=== PATIENT | female | born 1950 | race American Indian/Alaskan Native ===

== ENCOUNTER 2017-03-15 08:02 | Day surgery (SDC) | payer MEDICARE ==
[~2017-03-15 08:02] MED LIST: DEPO-MEDROL ONE; GARAMYCIN ONE; XYLOCAINE 2%/ EPI 1:200,000 INFILTRATI ONE
[2017-03-15] MEDS ORDERED: TETRACAINE 0.5% OD SCH (09:00)
[2017-03-15] MEDS ORDERED: NACL BACTERIOSTATIC INFILTRATI ONE (09:08)
--- NOTE | 2017-03-15 09:39 | Anesthesia Consultation ---
Anesthesia Consult and Med Hx Date of service: 03/15/17 - Airway Anesthetic Teeth Evaluation: Edentulous ROM Head & Neck: Inadequate Mental/Hyoid Distance: Inadequate Mallampati Class: Class III Intubation Access Assessment: Possibly Difficult - Pulmonary Exam CTA: Yes - Cardiac Exam Cardiac Exam: RRR - Pre-Operative Health Status ASA Pre-Surgery Classification: ASA3 Proposed Anesthetic Plan: MAC - Pulmonary Hx Sleep Apnea: No (high risk) - Cardiovascular System Hx Hypertension: Yes (OVER 10 YEARS) - Central Nervous System CVA: Yes (stroke in 2017. no deficits) Hx Back Pain: Yes Hx Psychiatric Problems: No - Other Systems Hx Alcohol Use: No Hx Substance Use: No Hx Cancer: No Hx Obesity: Yes - Additional Comments Anesthesia Medical History Comments: saw her PCP earlier this month. face appears swollen. family said that is not new. Plan is to provide sedation. Informed consent obtained
--- NOTE | 2017-03-15 09:39 | Anesthesia Day of Surgery ---
Anesthesia Day of Surgery - Day of Surgery Patient Examined: Yes Patient H&P Reviewed: Yes Patient is NPO: Yes
[2017-03-15] MEDS: ISOPTO CARPINE OD SCH ×3 (09:45→09:55)
[2017-03-15] MEDS: VIGAMOX OD PRN ×3 (09:45→09:55)
[2017-03-15 09:59] LABS: Calcium 9.5 mg/dL (8.4-10.2)
[2017-03-15] MEDS ORDERED: VERSED ONE ×2 (10:18→11:12)
[2017-03-15] MEDS ORDERED: SUBLIMAZE ONE (10:18)
[2017-03-15] MEDS ORDERED: APRESOLINE ONE (10:25)
[2017-03-15] MEDS ORDERED: XYLOCAINE MPF 1% INFILTRATI ONE ×2 (10:29→14:10)
[2017-03-15] MEDS ORDERED: DILAUDID ONE (11:22)
[2017-03-15] MEDS ORDERED: NACL P/F VIAL (10 ML) 10 ML ONE (11:42)
--- NOTE | 2017-03-15 12:16 | Operative Report ---
Operative Report Operative Report: PATIENT NAME: DATE OF : DATE OF SURGERY: 03/15/2017 PREOPERATIVE DIAGNOSIS: Failed DSEAK Right Eye POSTOPERATIVE DIAGNOSIS: Same PROPOSED PROCEDURE: Repeat Endothelial keratoplasty right eye ADDITIONAL PROCEDURE: NONE SURGEON: Raeann Patrick MD CREDIT CONTROL OFFICER SURGEON: [] ANESTHESIA: Monitored anesthesia care in combination with topical and intracameral anesthesia because of the established specific risk of reflux, arrhythmias, or anxiety attacks associated with ocular manipulation, as well as the difficulty of the senior web developer to manage such potentially catastrophic events while simultaneously attempting to complete the surgical procedure and was deemed necessary for the patient's safety to have an anesthesiologist was present during the procedure whenever possible. The anesthesiologist was utilized to regulate the intravenous sedation of the patient so the patient was cooperative yet not asleep in order for the patient to successfully maintain fixation of the eye on the operating light of the microscope. COMPLICATIONS: None ALLERGIES: [No known drug allergies] PREOPERATIVE NOTE: The patient is a lady who has the diagnosis of failed DSEAK graft right eye. She had had previous surgery at [facility]. 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 Donor tissue will be used to replace the dysfunctional endothelium utilizing a penetrating technique into the anterior chamber. This complicated technique allows the patient to maintain structural integrity of the eye making it much more resistant to traumatic rupture than a standard keratoplasty. It also allows a larger than average surface area of transplanted endothelium which hopefully in the long run will allow for longer endothelial viability and success for the surgery. It also provides for faster visual recovery and less anisometropia than previous keratoplasty techniques. It is technically more difficult because of the complicated preparation of the donor tissue and insertion of the donor tissue into the anterior chamber with fixation of the tissue without direct suturing of the donor. This also provides an increased chance of dislocation of the donor tissue in the immediate postoperative period compared to standard keratoplasty techniques. This type of corneal transplant takes over twice as long as a standard corneal transplant. Moreover, the preparation and end of surgery are more time consuming for both the surgeon and staff: the blocking of the eye requires a longer setup time as noted, the procedure itself is more complex, and the patient needs to lay face up and flat in the recovery area for a specified period of time prior to discharge. Preoperatively, it was discussed with the patient that they could have either a standard corneal transplant or a variation of a penetrating keratoplasty where only the posterior layers of the cornea are transplanted. With this new technique, as with any corneal transplant, there is always the possibility that the surgery may need to be repeated; or, in this case, also repeated with a standard corneal transplant if the visual result is not satisfactory. However, some of the advantages of this current technique are much more rapid visual recovery and a tectonically stronger eye after surgery. PROGNOSIS: Excellent INDICATIONS FOR SURGERY: The patient is undergoing surgery with the hope of eliminating or improving these visual difficulties. OPERATIVE REPORT: The patient was taken into the preoperative area and evaluated medically and found from a systemic standpoint to be suitable for the planned surgery and anesthesia. The patient was then sedated and monitored by anesthesia. The patient was next taken into the operating room where they were positioned on the operating bed. They were given drops of topical anesthetic in the operative eye. Betadine was used to scrub the periorbital area, eyelids, adjacent cheek and forehead. The prepped area was dried with sterile gauze. The patient was draped, and a wire speculum was placed between the eyelids. The horizontal diameter of the cornea was measured with calipers to assist in determining the proper sizing of the trephination blade to be used for donor incision and for removal of the patients central Descemets membrane. PREPARATION OF DONOR TISSUE: Prior to surgery, the donor tissue was inspected and found to be adequate for the planned procedure. The involved eye bank provided the usual demographic information on the donor including age, cause of , necessary screening and blood work. The results were negative regarding possible transmission of diseases from the donor. Our inspection of the donor tissue showed no gross abnormalities. The patients donor cornea was prepared by the eye bank to separate the anterior and posterior portions of the cornea for the planned surgery. This was done with a microkeratome and the anterior cap of tissue was placed back on the cornea and it was removed from the artificial anterior chamber and placed in the Optisol storage solution and sent to us for transplantation. Gentian quita ramirez were placed on the epithelial, or anterior surface of the corneal cap side of the tissue for identification. The cornea was inspected prior to surgery and found to be suitable and at the time of surgery was taken out of the storage solution and carefully centered on the cutting block with the centration based on the centration cade that was made the eye bank on the external surface of the cornea-the stromal side. The donor tissue was removed from the tissue storage container by carefully removing it with forceps taking care not to touch the endothelial surface but only the scleral rim Suction was applied, the centration was rechecked to make sure it was perfectly centered. Once the size of the appropriate trephine was determined, the donor was punched with the trephine. The donor cornea was then covered with tissue storage solution and put aside for use later in the surgical procedure. PREPARATION OF THE RECIPIENT CORNEA: Attention was now directed to the patients eye. My faculty research assistant had been applying topical anesthetic consisting of both drops and cellulose sponges soaked in 2% Xylocaine with epinephrine. The speculum had already been placed between the eyelids and the eye prepped and draped in my usual manner with Betadine solution prior to the starting the surgery. The horizontal corneal diameter was measured and the overall condition of the eye was evaluated to determine which size of trephine would best provide for as large donor button as possible without compromising the angle structures or iris. White to white was 10.25 so chose and 8.25mm punch. The patient had previously had a clear corneal incision of 5.0 mm for corneal surgery. This incision was able to be opened by using a Sinskey hook to separate the superficial area of the wound. Next, a cyclodialysis spatula was used to separate the deeper anterior vertical portion and the incision and then the lamellar portion. After the side port incision was made as noted below, a specially modified Mckenzie-Lashoney hook was introduced through the reopened incision into the anterior chamber and advanced to the nasal side of the chamber. The hook was used to grab the nasal side of the graft and dislodge it. Pulling with the hook, the graft was disinserted from the back surface of the patient, or recipient, cornea and removed from the eye. In this case, the Descemets, which was stripped and removed, consisted of the previous graft with the portion of stroma from the previous donor. A sharp blade was next used to make a stab incision in mid peripheral cornea into the anterior chamber. This was done so that the inner portion would be covered by the donor tissue later in the case. Gentian quita marked the incision as well. This incision was positioned to be used by my right hand. The donor tissue was removed from the cutting block and transferred to the operative field. It was placed on the patients cornea so that the endothelium of the donor was facing up. The tissue storage solution and any blood or other material was allowed to flow off the donor tissue. A small amount of viscoelastic was then placed on the endothelial surface of the donor. Two forceps were then used to grasp an edge of the donor taking care not to actually touch the endothelium and the posterior portion of the donor, which had been previously dissected on the artificial anterior chamber, and the donor gently partially pulled apart about half of the posterior portion from the anterior portion. A Busin Funnel was brought into the operative field and the posterior portion of the donor was pulled onto it. Intraocular forceps were used to pull the tissue into the funnel, essentially making it fold over on itself endothelial side inward. The intraocular forceps were then introduced through a previously made peripheral corneal stab incision in the nasal cornea. The forceps were moved across the anterior chamber to the area of the 5.0 mm incision. The Busin funnel was inserted into the 5.0 mm wound. The forceps grasped the edge of the donor tissue and the tissue was pulled into the eye. Once inside the eye, the forceps released their hold and the funnel was removed. Using a 30-gauge needle, a small stab incision was made in the peripheral cornea and a small amount of air was injected within the folded-over piece of donor tissue in the eye. The air was slowly injected to unfold the donor endothelial side down. Once the donor had unfolded, the anterior chamber was completely filled with air. A Bartlett roller was used to massage the anterior surface of the cornea and to massage the donor tissue into the correct position. The massaging also helped to remove retained air or fluid caught between the donor and recipient tissue. Once the donor was in the correct position and no retained fluid or air was present between the donor and recipient, the timer was started and the anterior chamber was left completely filled with air for the designated time. OTHER SPECIFICS OF THE SURGICAL PROCEDURE: Trephine size: [8.25] mm Horizontal corneal diameter: [10.25] mm Time anterior chamber was completely filled with air in the operating room while the donor cornea was allowed to hold in position without any manipulation or massaginmin The patient laid face up and flat in the recovery room with a partial air bubble to help with further adherence of the donor cornea to the recipient cornea for the following length of time: 60min Needle reposition of the donor: The donor button of tissue could not be massaged into the correct position on the recipient cornea. Therefore, a 30- gauge needle was bent at its tip to form a right angle of the peripheral one- third to one-half of the beveled area. This needle was introduced into the anterior chamber and used to grasp the peripheral edge of the donor tissue and pull it into the correct position. Massage was then used to provide good apposition and centration of the tissue. DISCHARGE SUMMARY: The patient was released in stable condition. The patient and those with the patient were given a written sheet of postoperative instructions and counseling on any abnormal laboratory studies. The patient is to call immediately for difficulties and will otherwise see us in the morning at the office. Raeann Patrick M.D. Date cc: Dictated: Worksheets: Transcribed:
--- NOTE | 2017-03-15 12:18 | Short Stay Summary ---
Short Stay Documentation Date of service: 03/15/17 - History H&P: obtained from office - Allergies and Medications Current Medications: Allergies No Known Allergies Allergy (Verified 03/14/17 11:36) Home Medications Medication Instructions Recorded Confirmed Last Taken Type Aspirin EC [Aspirin Enteric Coated 81 mg PO QDAY 03/15/17 03/15/17 03/14/17 History TAB] AtorvaSTATin [Lipitor] 40 mg PO QHS 03/15/17 03/15/17 03/14/17 History Dorzolamide HCl/Timolol Maleat 1 drop OD QID 03/15/17 03/15/17 03/14/17 History [Cosopt Eye Drops] Dorzolamide HCl/Timolol Maleat 1 drop OS TID 03/15/17 03/15/17 03/14/17 History [Dorzolamide-Timolol Eye Drops] Lisinopril/Hydrochlorothiazide 1 tab PO QDAY 03/15/17 03/15/17 03/14/17 History [Zestoretic 10-12.5 mg] amLODIPine [Norvasc] 5 mg PO QDAY 03/15/17 03/15/17 03/15/17 06:30 History Active Medications Moxifloxacin HCl (Vigamox) 1 drops OD Q5MIN PRN PRN Reason: Analgesia Stop: 03/15/17 15:00 Last Admin: 03/15/17 09:55 Dose: 1 drops Pilocarpine HCl (Isopto Carpine) 1 drops OD Q5MIN [facility] Stop: 03/17/17 09:35 Last Admin: 03/15/17 09:55 Dose: 1 drops Tetracaine HCl (Tetracaine 0.5%) 1 drops OD Q5M [facility] Stop: 03/15/17 15:00 Last Admin: 03/15/17 09:45 Dose: 1 drops - Brief post op/procedure progress note Date of procedure: 03/15/17 Pre-op diagnosis: failed corneal graft right eye Post-op diagnosis: same Procedure: Repeat endothelial keratoplasty right eye Anesthesia: MAC, local Surgeon: MARIE RAMÍREZ Estimated blood loss: none Pathology: list (failed graft and cornea rim tissue) Condition: stable - Disposition Condition at discharge: Good Disposition: DC-01 TO HOME OR SELFCARE - Discharge Diagnoses (1) Failed corneal transplant Status: Resolved Short Stay Discharge Plan Additional Instructions: FOLLOW SURGEON INSTRUCTION SHEETS. Follow up with: KIM GRIFFIN MD [Primary Care Provider] - 7 Days Forms: Outpatient Surgery DC Inst.
[2017-03-15 13:14] VITALS: BP 147/75
--- NOTE | 2017-03-15 13:59 | Post Anesthesia Evaluation ---
- Post Anesthesia Evaluation Patient Participated: Yes Airway Patent: Yes Stable Respiratory Function: Yes Nausea/Vomiting: No Temp > 96.8F: Yes Pain Manageable: Yes Adequeate Hydration: Yes Anesthesia Complications: No
[2017-03-15] MEDS ORDERED: PRED FORTE 1% OD SCH (14:00)
== END 2017-03-15 13:05 | disposition home or self-care (01) ==
LOC: OR 08:02
DX: T86.841 Corneal transplant failure (principal); I10 Essential (primary) hypertension; E66.9 Obesity, unspecified; Z86.73 Personal history of transient ischemic attack (TIA), and cerebral infarction without residual deficits; Z91.040 Latex allergy status; Z79.82 Long term (current) use of aspirin; Z79.899 Other long term (current) drug therapy; Y83.1 Surgical operation with implant of artificial internal device as the cause of abnormal reaction of the patient, or of later complication, without mention of misadventure at the time of the procedure
CPT/HCPCS: 36415; 65756; 80048; 82962; 87075; 87116; 88304; J0360; J2250; J3010; J1030; J1170; J1580; V2785

== ENCOUNTER 2017-11-01 06:27 | Day surgery (SDC) | payer MEDICARE ==
[2017-11-01] MEDS ORDERED: TETRACAINE 0.5% OS SCH (06:30)
[2017-11-01] MEDS: VIGAMOX OS SCH ×3 (08:46→09:09)
[2017-11-01] MEDS: AK-Dilate OS SCH ×3 (08:46→09:09)
[2017-11-01] MEDS: MYDRIACYL OS SCH ×3 (08:46→09:09)
--- NOTE | 2017-11-01 09:07 | Anesthesia Day of Surgery ---
Anesthesia Day of Surgery - Day of Surgery Patient Examined: Yes Patient H&P Reviewed: Yes Patient is NPO: Yes
--- NOTE | 2017-11-01 09:07 | Anesthesia Consultation ---
Anesthesia Consult and Med Hx Date of service: 11/01/17 - Airway Anesthetic Teeth Evaluation: Good ROM Head & Neck: Adequate Mental/Hyoid Distance: Adequate Mallampati Class: Class II Intubation Access Assessment: Good - Pulmonary Exam CTA: Yes - Cardiac Exam Cardiac Exam: RRR - Pre-Operative Health Status ASA Pre-Surgery Classification: ASA3 Proposed Anesthetic Plan: MAC - Pulmonary Hx Sleep Apnea: No (high risk) - Cardiovascular System Hx Hypertension: Yes (20 YEARS) - Central Nervous System CVA: Yes (2016) Hx Back Pain: Yes Hx Psychiatric Problems: No - Other Systems Hx Alcohol Use: No Hx Substance Use: No Hx Cancer: No Hx Obesity: Yes
[2017-11-01] MEDS ORDERED: VERSED ONE (09:28)
[2017-11-01] MEDS ORDERED: DIAMOX PO NR (09:57)
--- NOTE | 2017-11-01 09:57 | Operative Report ---
Operative Report Operative Report: PATIENT'S NAME: DATE OF : DATE OF SURGERY: 11/01/2017 PREOPERATIVE DIAGNOSIS: Cataract left eye POSTOPERATIVE DIAGNOSIS: Same OPERATIVE PROCEDURE: Phacoemulsification with intraocular lens implantation, left eye SURGEON: Raeann Patrick M.D. EXPERIMENTAL BOX TESTER SURGEON: Blake Lens: [id number] 21.0 D ANESTHESIA: Monitored anesthesia care in combination with topical and intracameral anesthesia because of the established specific risk of reflux, arrhythmias, or anxiety attacks associated with ocular manipulation, as well as the difficulty of the booth cashier to manage such potentially catastrophic events while simultaneously attempting to complete the surgical procedure and was deemed necessary for the patient's safety to have an Quality Systems Technician present during the procedure whenever possible. An Quality Systems Technician was utilized to regulate the intravenous sedation of the patient so the patient was cooperative yet not asleep in order for the patient to successfully maintain fixation of the eye on the operating light of the microscope. COMPLICATIONS: No surgical complications No blood loss. ALLERGIES: No known drug allergies PROGNOSIS: Excellent INDICATIONS FOR SURGERY: The patient is undergoing surgery in the hopes of eliminating or improving these visual difficulties. PROCEDURE: After arriving at the surgery center, the patient was given topical anesthetic and dilating drops, as noted in the record. The patient was then taken into the operating room and given more anesthetic drops. The eyelids , lashes, and lid margins were scrubbed with Betadine solution, and the patient was draped. The Nurse Quality Systems Technician administered IV sedation and monitored the patient during the procedure. The eye was then fixated with a 0.12, and a stab incision was made in the peripheral clear cornea into the anterior chamber. This was made on my left side. Viscoelastic was next used to fill the anterior chamber. The eye was once again fixated with the 0.12 forceps and a keratome was used make an incision in clear cornea peripherally on my right hand side temporally. The capsule forceps were used to open the central anterior capsule and then make a continuous round capsulotomy. Hydrodissection was carried out utilizing a cannula and balanced salt solution to delineate the cortical material from the capsule and the nucleus from the cortical material. The phaco tip was introduced into the eye and used to remove the anterior cortical material in the area of the capsulotomy. Then the phaco tip was buried into the nucleus, and a chopping instrument was introduced into the eye and used to provide countertraction in the nucleus between this instrument and the phaco tip fracturing the nucleus. This procedure was repeated multiple times, providing multiple small segments of the lens, and then the phaco tip was used to remove each of these segments. An I/A tip was then used to remove the remaining cortex. The anterior chamber was refilled with viscoelastic. An one-piece, acrylic intraocular lens was then placed into an inserting cartridge. The tip of the inserting cartridge was introduced into the keratome incision and into the anterior chamber. The implant was gently advanced through the cartridge and into the eye, where it unfolded, and both haptics were placed in the capsular bag, where it centered nicely and appeared to be well fixated. After placement of the intraocular lens, the I~and~A handpiece was placed back into the eye and used to remove the viscoelastic, including viscoelastic that was behind the optic of the intraocular lens. The anterior chamber was then filled with balanced salt solution, and hydration of the wound was used to cause swelling of the wound and more appropriate watertight closure. When the wound was found to be firm, the patient was asked to comment on how bright the light was. If there was no light perception at all or if the light was substantially dimmer than during the rest of the surgery, the amount of fluid in the eye was decompressed to lower the intraocular pressure until the patient could see the bright light again. This was done to avoid any damage or decreased blood flow to the optic nerve. MEDICATIONS APPLIED AT END OF SURGERY: One drop of Pred Forte and Vigamox The patient was given a shield to wear at night and was instructed not to rub or push on the eye. DISCHARGE SUMMARY: The patient was released in stable condition. The patient and those with the patient were given a written sheet of postoperative instructions and counseling on any abnormal laboratory studies. The patient is to see us tomorrow for follow-up in the office and is to call immediately for any difficulties. Raeann Patrick M.D. Date
--- NOTE | 2017-11-01 09:59 | Short Stay Summary ---
Short Stay Documentation Date of service: 11/01/17 - History H&P: obtained from office - Allergies and Medications Current Medications: Allergies No Known Allergies Allergy (Verified 10/30/17 11:28) Home Medications Medication Instructions Recorded Confirmed Last Taken Type Aspirin EC [Aspirin Enteric Coated 81 mg PO QDAY 03/15/17 10/30/17 10/31/17 History TAB] AtorvaSTATin [Lipitor] 40 mg PO QHS 03/15/17 10/30/17 10/31/17 History Dorzolamide HCl/Timolol Maleat 1 drop OS TID 03/15/17 10/30/17 10/31/17 History [Dorzolamide-Timolol Eye Drops] Lisinopril/Hydrochlorothiazide 1 tab PO QDAY 03/15/17 10/30/17 11/01/17 05:00 History [Zestoretic 10-12.5 mg] Ferrous Sulfate 325 mg PO DAILY 10/30/17 10/30/17 10/31/17 History amLODIPine [Norvasc] 10 mg PO DAILY 10/30/17 10/30/17 11/01/17 05:00 History cloNIDine [Catapres] 0.1 mg PO DAILY 10/30/17 10/30/17 10/31/17 History Active Medications Acetazolamide (Diamox) 500 mg PO ONCE ONE Stop: 11/01/17 09:58 Moxifloxacin HCl (Vigamox) 1 drops OS Q5MIN [facility] Stop: 11/01/17 23:59 Last Admin: 11/01/17 09:09 Dose: 1 drops Phenylephrine HCl (Ak-Dilate) 1 drops OS Q5MIN [facility] Stop: 11/01/17 23:59 Last Admin: 11/01/17 09:09 Dose: 1 drops Prednisolone Acetate (Pred Forte 1%) 1 drops OS QID [facility] Tetracaine HCl (Tetracaine 0.5%) 1 drops OS Q5M [facility] Stop: 11/01/17 23:59 Last Admin: 11/01/17 08:45 Dose: 1 drops Tropicamide (Mydriacyl) 1 drops OS Q5MIN [facility] Stop: 11/01/17 23:59 Last Admin: 11/01/17 09:09 Dose: 1 drops - Brief post op/procedure progress note Date of procedure: 11/01/17 Pre-op diagnosis: cataract left eye Post-op diagnosis: same Procedure: Phacoemulsification with intraocular lens insertion left eye Anesthesia: MAC, local Surgeon: MARIE RAMÍREZ Estimated blood loss: none Pathology: none Condition: stable - Disposition Condition at discharge: Good Disposition: DC-01 TO HOME OR SELFCARE - Discharge Diagnoses (1) Nuclear sclerotic cataract of left eye Status: Resolved Short Stay Discharge Plan Follow up with: NICOLE HEREDIA MD [Primary Care Provider] - 7 Days
[2017-11-01] MEDS ORDERED: PRED FORTE 1% OS SCH (10:00)
[2017-11-01 11:21] VITALS: BP 151/85
== END 2017-11-01 11:10 | disposition home or self-care (01) ==
LOC: OR 06:27
DX: H25.12 Age-related nuclear cataract, left eye (principal); E78.00 Pure hypercholesterolemia, unspecified; H40.9 Unspecified glaucoma; I10 Essential (primary) hypertension; T86.841 Corneal transplant failure; E66.9 Obesity, unspecified; Z68.33 Body mass index [BMI] 33.0-33.9, adult; Z98.891 History of uterine scar from previous surgery; Z90.710 Acquired absence of both cervix and uterus; Z86.2 Personal history of diseases of the blood and blood-forming organs and certain disorders involving the immune mechanism; Z80.8 Family history of malignant neoplasm of other organs or systems; Z79.82 Long term (current) use of aspirin; Z79.899 Other long term (current) drug therapy; Z79.01 Long term (current) use of anticoagulants; Z86.73 Personal history of transient ischemic attack (TIA), and cerebral infarction without residual deficits; Z98.890 Other specified postprocedural states
CPT/HCPCS: 66984; 82962; J2250; V2632